=== PATIENT | male | born 1955 | race Caucasian/White ===

== ENCOUNTER → 2016-10-06 | Outpatient (CLI) | payer BC ==
[2016-10-06 09:00] LABS: CH 32.2; CHCM 35.3; HDW 2.97; HGB 13.2 gm/dL (13.0-17.5); MCHC 33.8 g/dL (31.0-37.0); MCV 91.6 fL (80.0-100.0); Mean Platelet Volume 7.1; RBC 4.25 m/uL (4.30-5.90); RDW 14.3 % (11.5-15.5); WBC 5.9 k/uL (3.8-10.6)
[2016-10-06 13:11] LABS: ALT 34 U/L (21-72); AST 20 U/L (17-59); Alkaline Phosphatase 70 U/L (38-126); Anion Gap 13 mmol/L; Blood Urea Nitrogen 25 mg/dL (9-20); Calcium 9.7 mg/dL (8.4-10.2); Carbon Dioxide 27 mmol/L (22-30); Chloride 107 mmol/L (98-107); Cholesterol 197 mg/dL (<200); Glucose 108 mg/dL (74-99); HDL Cholesterol 48 mg/dL (40-60); Non-African American GFR(MDRD) >60 (>60 ml/min/1.73 sqM); Potassium 4.8 mmol/L (3.5-5.1); Sodium 147 mmol/L (137-145); Total Bilirubin 0.7 mg/dL (0.2-1.3); Total Protein 7.2 g/dL (6.3-8.2); Triglycerides 346 mg/dL (<150)
[2016-10-06 13:36] LABS: Prostate Specific Antigen 2.69 ng/mL (0.00-4.00)
== END | disposition home or self-care (01) ==
LOC: LABWHC1 07:34
PROVIDERS: ATTEND Urology
DX: N40.1 Benign prostatic hyperplasia with lower urinary tract symptoms (principal); I11.9 Hypertensive heart disease without heart failure; E78.2 Mixed hyperlipidemia; M19.90 Unspecified osteoarthritis, unspecified site; R97.20 Elevated prostate specific antigen [PSA]
CPT/HCPCS: 36415; 80053; 80061; 84153; 84439; 84443; 85027

== ENCOUNTER → 2016-11-08 | Outpatient (CLI) | payer BC ==
--- NOTE | 2016-11-08 10:02 | XR ---
EXAMINATION TYPE: XR chest 2V DATE OF EXAM: 11/08/2016 9:54 AM COMPARISON: 06/24/2016 TECHNIQUE: PA and lateral views submitted. HISTORY: Right shoulder cyst, hypertension FINDINGS: The lungs are clear and there is no pneumothorax, pleural effusion, or focal pneumonia. Mild hypert rophic change of the spine. IMPRESSION: 1. No acute process.
--- NOTE | 2016-11-08 10:04 | XR ---
EXAMINATION TYPE: XR shoulder complete BILAT DATE OF EXAM: 11/08/2016 9:54 AM COMPARISON: None HISTORY: Shoulder cyst TECHNIQUE: Three views are submitted of each shoulder. FINDINGS: The osseous structures are intact. There is no acute fracture or dislocation. The AC joint is maint ained. Deformity of the left second rib appears chronic. IMPRESSION: 1. No acute process.
[2016-11-08 11:32] LABS: Uric Acid 8.3 mg/dL (3.5-8.5)
== END | disposition home or self-care (01) ==
LOC: RADXRMAIN 09:21
PROVIDERS: ATTEND Internal Medicine
DX: R73.9 Hyperglycemia, unspecified (principal); M19.90 Unspecified osteoarthritis, unspecified site; I11.9 Hypertensive heart disease without heart failure; M10.9 Gout, unspecified; M79.1 Myalgia
CPT/HCPCS: 36415; 71020; 82550; 83036; 84550

== ENCOUNTER → 2017-11-04 | Outpatient (CLI) | payer BC ==
--- NOTE | 2017-11-04 08:37 | XR ---
EXAMINATION TYPE: XR chest 2V DATE OF EXAM: 11/04/2017 COMPARISON: Prior chest x-ray 11/08/2016 HISTORY: I11.9, physical exam TECHNIQUE: Frontal and lateral views of the chest are obtained. FINDINGS: There is no focal air space opacity, pleural effusion, or pneumothorax seen. The cardiac silhouette size is within normal limits. Linear densities on the lateral exam are stable and may refl ect scarring. The osseous structures are intact. IMPRESSION: No acute cardiopulmonary process.
--- NOTE | 2017-11-04 08:38 | XR ---
Abdomen HISTORY: N 20.0 Frontal view of the abdomen on 2 images correlated to prior abdomen 08/05/2016 Probable phlebolith in the right hemipelvis. Oval calcification in the left hemipelvis is no longer s een. Bone mineralization is maintained. Calcification is superimposed over the lower pole of the left kidney measuring approximately 7 mm. Possible calcification also present at the upper pole measuring approximately 4 mm. Right kidney is obscured by bowel gas. Lung bases not included on the exam. No e vident pneumoperitoneum or bowel obstruction. IMPRESSION: Nephrolithiasis. Additional findings above.
[2017-11-04 08:43] LABS: Appearance,Urine Clear (Clear); Bilirubin,Urine Negative (Negative); Blood,Urine Negative (Negative); Color,Urine Yellow; Glucose,Urine (UA) Negative (Negative); HCT 41.7 % (39.0-53.0); HGB 14.7 gm/dL (13.0-17.5); Ketones,Urine Negative (Negative); Leukocyte Esterase,Urine Negative (Negative); MCH 31.7 pg (25.0-35.0); MCHC 35.3 g/dL (31.0-37.0); MCV 89.6 fL (80.0-100.0); Mean Platelet Volume 7.2; PH, Urine 5.5 (5.0-8.0); Platelet Count 204 k/uL (150-450); Protein,Urine Negative (Negative); RBC 4.65 m/uL (4.30-5.90); RDW 13.7 % (11.5-15.5); Urobilinogen,Urine <2.0 mg/dL (<2.0); WBC 5.8 k/uL (3.8-10.6)
[2017-11-04 09:04] LABS: Albumin 4.5 g/dL (3.5-5.0); Calcium 9.6 mg/dL (8.4-10.2); Potassium 4.6 mmol/L (3.5-5.1); Total Bilirubin 0.6 mg/dL (0.2-1.3); Total Protein 7.4 g/dL (6.3-8.2); Uric Acid 7.6 mg/dL (3.5-8.5)
[2017-11-04 09:20] LABS: T4, Free (Free Thyroxine) 0.78 ng/dL (0.78-2.19)
[2017-11-04 23:40] LABS: Hemoglobin A1C 4.8 % (4.0-6.0)
== END | disposition home or self-care (01) ==
LOC: RADXRMAIN 07:47
PROVIDERS: ATTEND Urology
DX: N20.0 Calculus of kidney (principal); N28.89 Other specified disorders of kidney and ureter; E11.9 Type 2 diabetes mellitus without complications; E78.5 Hyperlipidemia, unspecified; K21.0 Gastro-esophageal reflux disease with esophagitis; M10.9 Gout, unspecified; Z00.00 Encounter for general adult medical examination without abnormal findings
CPT/HCPCS: 36415; 71046; 74018; 80053; 80061; 81003; 82272; 83036; 84439; 84443; 84550; 85027

== ENCOUNTER → 2018-07-18 | Outpatient (CLI) | payer BC ==
[2018-07-18 09:14] LABS: HCT 43.3 % (39.0-53.0); MCH 31.7 pg (25.0-35.0); MCHC 34.6 g/dL (31.0-37.0); MCV 91.6 fL (80.0-100.0); Mean Platelet Volume 6.8; Platelet Count 189 k/uL (150-450); RBC 4.72 m/uL (4.30-5.90); RDW 13.5 % (11.5-15.5); WBC 5.6 k/uL (3.8-10.6)
[2018-07-18 19:13] LABS: Albumin 4.8 g/dL (3.80-4.90); Albumin/Globulin Ratio 2.82 (1.20-2.10); Anion Gap 10.6 mmol/L (4.00-12.00); Calcium 9.3 mg/dL (8.7-10.3); Carbon Dioxide 23.4 mmol/L (21.6-31.8); Globulin 1.7 g/dL (2.1-3.7); Total Bilirubin 0.4 mg/dL (0.2-1.2); Total Protein 6.5 g/dL (6.2-8.2)
== END ==
LOC: LABWHC1 07:54
PROVIDERS: ATTEND Internal Medicine
DX: E78.2 Mixed hyperlipidemia (principal); I11.9 Hypertensive heart disease without heart failure
CPT/HCPCS: 36415; 80053; 82550; 85027

== ENCOUNTER → 2018-08-28 | Outpatient (CLI) | payer BC ==
[2018-08-28 08:24] LABS: HCT 43.6 % (39.0-53.0); HGB 15.3 gm/dL (13.0-17.5); MCH 31.5 pg (25.0-35.0); MCHC 35.2 g/dL (31.0-37.0); MCV 89.4 fL (80.0-100.0); Mean Platelet Volume 6.6; Platelet Count 219 k/uL (150-450); RBC 4.88 m/uL (4.30-5.90); RDW 13.4 % (11.5-15.5); WBC 6.1 k/uL (3.8-10.6)
[2018-08-28 16:33] LABS: ALT 28 U/L (10-49); AST 23 U/L (14-35); Albumin/Globulin Ratio 2.63 (1.20-2.10); Alkaline Phosphatase 51 U/L (41-126); Calcium 9.8 mg/dL (8.7-10.3); Carbon Dioxide 27.4 mmol/L (21.6-31.8); Chloride 105 mmol/L (96-109); Cholesterol 245 mg/dL (0-200); Globulin 1.9 g/dL (1.6-3.3); Glucose 104 mg/dL (70-110); Potassium 4.8 mmol/L (3.5-5.5); Sodium 141 mmol/L (135-145); Total Bilirubin 0.6 mg/dL (0.2-1.2); Total Protein 6.9 g/dL (6.2-8.2)
== END | disposition home or self-care (01) ==
LOC: LABWHC1 07:50
PROVIDERS: ATTEND Internal Medicine
DX: Z00.00 Encounter for general adult medical examination without abnormal findings (principal); I11.9 Hypertensive heart disease without heart failure; E78.2 Mixed hyperlipidemia; N40.1 Benign prostatic hyperplasia with lower urinary tract symptoms; M19.90 Unspecified osteoarthritis, unspecified site
CPT/HCPCS: 36415; 80053; 80061; 84153; 84439; 84443; 85027

== ENCOUNTER → 2020-11-21 | Outpatient (CLI) | payer BC ==
--- NOTE | 2020-11-21 15:55 | XR ---
KUB HISTORY: Calculus of kidney, right-sided kidney stone Frontal KUB and [address] scan same date Punctate calcification seen on CT scan within the kidneys not well seen on plain film. Right ureteral calculus seen on CT not seen with certainty on plain film. No evident bowel obstruction or pneumoper itoneum. IMPRESSION: Unable to visualize patient's renal calculi, right ureteral calculus
== END | disposition home or self-care (01) ==
LOC: RADXRMAIN 12:51
PROVIDERS: ATTEND Urology
DX: N20.0 Calculus of kidney (principal)
CPT/HCPCS: 74018

== ENCOUNTER → 2020-11-21 | Outpatient (CLI) | payer BC ==
--- NOTE | 2020-11-21 15:09 | CT ---
EXAMINATION TYPE: CT abdomen pelvis wo con DATE OF EXAM: 11/21/2020 COMPARISON: 07/21/2016 HISTORY: bilateral flank pain, hematuria. hx of stones. CT DLP: 1032 mGycm Examination of the solid and hollow viscera is limited given the lack of contrast. FINDINGS: LUNG BASES: No evidence for nodule. No evidence for infiltrate. LIVER/GB: The gallbladder is unremarkable. No space-occupying hepatic lesion. PANCREAS: No pancreatic mass identified. No inflammatory process seen. SPLEEN: No evidence for splenomegaly. No intrasplenic lesions seen. ADRENALS: No adrenal nodules identified. No evidence for thickening. KIDNEYS: No evidence for renal mass. 2 mm calculus mid pole left kidney. 2 or 3 separate 3 mm calculi lower pole right kidney. No hydronephrosis. BOWEL: Appendix has a normal appearance. No evidence of bowel obstruction. No inflammatory process. Lymph nodes: No evidence for adenopathy greater than 1 cm. Abdominal aorta: Atheromatous changes seen. No evidence for aneurysm. Genital organs: No significant abnormality. Other: No significant abnormality. IMPRESSION: 1. Nonobstructing nephrolithiasis.
== END | disposition home or self-care (01) ==
LOC: RADCTMAIN 14:33
PROVIDERS: ATTEND Urology
DX: N20.0 Calculus of kidney (principal)
CPT/HCPCS: 74176

== ENCOUNTER 2020-12-07 10:40 | Emergency (ER) | payer BC ==
[2020-12-07 10:55] VITALS: TEMP 98.2
--- NOTE | 2020-12-07 11:37 | XR ---
EXAMINATION TYPE: XR chest 2V DATE OF EXAM: 12/07/2020 COMPARISON: 11/04/2017 INDICATION: Weakness hypertension TECHNIQUE: Frontal and lateral views of the chest are obtained. FINDINGS: The heart size is normal. The pulmonary vasculature is normal. The lungs are clear. IMPRESSION: 1. No acute pulmonary process.
--- NOTE | 2020-12-07 12:04 | ED ---
Weakness HPI - General Chief complaint: Weakness Stated complaint: Hypertensive Source: patient Mode of arrival: wheelchair Limitations: no limitations - History of Present Illness Initial comments: Patient is a 65-year-old male past medical history of nephrolithiasis who presents emergency room in with feeling generally weak. Patient states that he was bending over today when he had sudden onset of room spinning. He had to brace himself. States that he went and took his blood pressure was notably elevated. States his blood pressure has been slowly elevating over the past several months. His primary care doctor recently changed his blood pressure medication to increase that however states she does not feel it is adequate enough. He denied having any associated headaches or vision changes. No unilateral numbness or weakness. Denies any chest pain or shortness of breath. No previous history of cardiac issues. No nausea or vomiting. No recent illnesses. Patient denies any abdominal pain. No changes in bowel or bladder habits. No other alleviating, pool servicer modifying factors - Related Data Home Medications Medication Instructions Recorded Confirmed Enalapril [Vasotec] 10 mg PO HS 07/21/16 12/07/20 atenoloL [Tenormin] 50 mg PO DAILY 07/21/16 12/07/20 Atorvastatin Calcium [Lipitor] 80 mg PO HS 12/07/20 12/07/20 Fenofibrate Nanocrystallized 145 mg PO DAILY 12/07/20 12/07/20 [Fenofibrate] Meloxicam [Mobic] 15 mg PO DAILY 12/07/20 12/07/20 Tamsulosin HCl [Flomax] 0.4 mg PO DAILY 12/07/20 12/07/20 Previous Rx's Medication Instructions Recorded Enalapril [Vasotec] 20 mg PO DAILY #30 tablet 12/07/20 Allergies Allergy/AdvReac Type Severity Reaction Status Date / Time No Known Allergies Allergy Verified 12/07/20 13:08 Review of Systems ROS Statement: Those systems with pertinent positive or pertinent negative responses have been documented in the HPI. ROS Other: All systems not noted in ROS Statement are negative. Past Medical History Past Medical History: Hyperlipidemia, Hypertension Additional Past Medical History / Comment(s): kidney stones History of Any Multi-Drug Resistant Organisms: None Reported Past Surgical History: Appendectomy Past Psychological History: No Psychological Hx Reported Smoking Status: Never smoker Past Alcohol Use History: Daily Past Drug Use History: None Reported General Exam Limitations: no limitations Course Vital Signs 12/07/20 12/07/20 12/07/20 10:51 13:58 15:27 Temperature 98.2 F Pulse Rate 60 80 56 L Respiratory 18 18 16 Rate Blood Pressure 196/89 185/90 155/74 O2 Sat by Pulse 99 99 98 Oximetry EKG Findings - EKG Comments: EKG Findings:: EKG demonstrates a sinus bradycardia with a rate of 56. VT interval 146. QRS 94. QTC 438. No acute ST segment elevations or depressions concerning for ischemic changes Medical Decision Making - Medical Decision Making Upon arrival patient was placed into room 20. A thorough history and physical exam was performed. Patient does arrive and is extremely hypertensive. Did recommend laboratory studies as he is symptomatic. Chest x-ray was performed. Laboratory studies are reviewed. Chest x-ray demonstrates no acute cardiopulmonary process. I did discuss the results with the patient. He has had improvement in his blood pressure to 155/74 without medication administration. The patient did take an extra dose of his home blood pressure medication before coming into the ER. I did discuss medication changes. At this time we do feel that it is appropriate to double the patient's dose of enalapril. He is to take atenolol in the morning and enalapril in the afternoon. I want him to keep a blood pressure log. Measures blood pressure 3 times a day. Follow-up with his primary care doctor for which she does have an appointment tomorrow. Return to the emergency room for any new or worsening symptoms. Patient was discharged home in stable condition - Lab Data Result diagrams: 12/07/20 11:17 12/07/20 11:17 Lab Results 12/07/20 12/07/20 12/07/20 Range/Units 11:17 11:17 11:17 WBC 5.9 (3.8-10.6) k/uL RBC 4.67 (4.30-5.90) m/uL Hgb 14.5 (13.0-17.5) gm/dL Hct 40.4 (39.0-53.0) % MCV 86.6 (80.0-100.0) fL MCH 31.0 (25.0-35.0) pg MCHC 35.8 (31.0-37.0) g/dL RDW 13.2 (11.5-15.5) % Plt Count 234 (150-450) k/uL MPV 7.1 Neutrophils % 64 % Lymphocytes % 25 % Monocytes % 6 % Eosinophils % 2 % Basophils % 1 % Neutrophils # 3.7 (1.3-7.7) k/uL Lymphocytes # 1.5 (1.0-4.8) k/uL Monocytes # 0.4 (0-1.0) k/uL Eosinophils # 0.1 (0-0.7) k/uL Basophils # 0.1 (0-0.2) k/uL PT 10.5 (9.0-12.0) sec INR 1.0 (<1.2) APTT 21.9 L (22.0-30.0) sec Sodium 140 (137-145) mmol/L Potassium 4.5 (3.5-5.1) mmol/L Chloride 105 (98-107) mmol/L Carbon Dioxide 24 (22-30) mmol/L Anion Gap 11 mmol/L BUN 30 H (9-20) mg/dL Creatinine 1.21 (0.66-1.25) mg/dL Est GFR (CKD-EPI)AfAm 72 (>60 ml/min/1.73 sqM) Est GFR (CKD-EPI)NonAf 63 (>60 ml/min/1.73 sqM) Glucose 103 H (74-99) mg/dL Calcium 9.7 (8.4-10.2) mg/dL Total Bilirubin 0.7 (0.2-1.3) mg/dL AST 30 (17-59) U/L ALT 28 (4-49) U/L Alkaline Phosphatase 63 (38-126) U/L Troponin I (0.000-0.034) ng/mL Total Protein 7.2 (6.3-8.2) g/dL Albumin 4.8 (3.5-5.0) g/dL Urine Color Urine Appearance (Clear) Urine pH (5.0-8.0) Ur Specific [place] (1.001-1.035) Urine Protein (Negative) Urine Glucose (UA) (Negative) Urine Ketones (Negative) Urine Blood (Negative) Urine Nitrite (Negative) Urine Bilirubin (Negative) Urine Urobilinogen (<2.0) mg/dL Ur Leukocyte Esterase (Negative) 12/07/20 12/07/20 Range/Units 11:17 12:16 WBC (3.8-10.6) k/uL RBC (4.30-5.90) m/uL Hgb (13.0-17.5) gm/dL Hct (39.0-53.0) % MCV (80.0-100.0) fL MCH (25.0-35.0) pg MCHC (31.0-37.0) g/dL RDW (11.5-15.5) % Plt Count (150-450) k/uL MPV Neutrophils % % Lymphocytes % % Monocytes % % Eosinophils % % Basophils % % Neutrophils # (1.3-7.7) k/uL Lymphocytes # (1.0-4.8) k/uL Monocytes # (0-1.0) k/uL Eosinophils # (0-0.7) k/uL Basophils # (0-0.2) k/uL PT (9.0-12.0) sec INR (<1.2) APTT (22.0-30.0) sec Sodium (137-145) mmol/L Potassium (3.5-5.1) mmol/L Chloride (98-107) mmol/L Carbon Dioxide (22-30) mmol/L Anion Gap mmol/L BUN (9-20) mg/dL Creatinine (0.66-1.25) mg/dL Est GFR (CKD-EPI)AfAm (>60 ml/min/1.73 sqM) Est GFR (CKD-EPI)NonAf (>60 ml/min/1.73 sqM) Glucose (74-99) mg/dL Calcium (8.4-10.2) mg/dL Total Bilirubin (0.2-1.3) mg/dL AST (17-59) U/L ALT (4-49) U/L Alkaline Phosphatase (38-126) U/L Troponin I <0.012 (0.000-0.034) ng/mL Total Protein (6.3-8.2) g/dL Albumin (3.5-5.0) g/dL Urine Color Yellow Urine Appearance Clear (Clear) Urine pH 5.5 (5.0-8.0) Ur Specific [place] 1.021 (1.001-1.035) Urine Protein Negative (Negative) Urine Glucose (UA) Negative (Negative) Urine Ketones Negative (Negative) Urine Blood Negative (Negative) Urine Nitrite Negative (Negative) Urine Bilirubin Negative (Negative) Urine Urobilinogen <2.0 (<2.0) mg/dL Ur Leukocyte Esterase Negative (Negative) Disposition Clinical Impression: HTN (hypertension) Disposition: HOME SELF-CARE Condition: Stable Instructions (If sedation given, give patient instructions): Hypertension (ED) Additional Instructions: Please follow up with your PCP at your scheduled appointment. Take your normal dose of Atenolol in the morning and Enalapril 20 mg in the afternoon. Take your blood pressures 3 times daily and keep a log. Return to the ED for any new or worsening symptoms. Prescriptions: Enalapril [Vasotec] 20 mg PO DAILY #30 tablet Is patient prescribed a controlled substance at d/c from ED?: No Referrals: Mann Merlos MD [Primary Care Provider] - 1-2 days Time of Disposition: 14:46
[2020-12-07 12:08] LABS: Basophils # (A) 0.1 k/uL (0-0.2); Basophils % (A) 1 %; Eosinophils # (A) 0.1 k/uL (0-0.7); Eosinophils % (A) 2 %; HCT 40.4 % (39.0-53.0); HGB 14.5 gm/dL (13.0-17.5); Lymphocytes # (A) 1.5 k/uL (1.0-4.8); Lymphocytes % (A) 25 %; MCHC 35.8 g/dL (31.0-37.0); MCV 86.6 fL (80.0-100.0); Mean Platelet Volume 7.1; Monocytes # (A) 0.4 k/uL (0-1.0); Monocytes % (A) 6 %; Neutrophils # (A) 3.7 k/uL (1.3-7.7); Neutrophils % (A) 64 %; Platelet Count 234 k/uL (150-450); RBC 4.67 m/uL (4.30-5.90); RDW 13.2 % (11.5-15.5); WBC 5.9 k/uL (3.8-10.6)
[2020-12-07 12:24] LABS: Prothrombin Time 10.5 sec (9.0-12.0)
[2020-12-07 12:26] LABS: Partial Thromboplastin Time 21.9 sec (22.0-30.0)
[2020-12-07 12:28] LABS: Albumin 4.8 g/dL (3.5-5.0); Calcium 9.7 mg/dL (8.4-10.2); Potassium 4.5 mmol/L (3.5-5.1); Total Bilirubin 0.7 mg/dL (0.2-1.3); Total Protein 7.2 g/dL (6.3-8.2)
[2020-12-07 12:32] LABS: Appearance,Urine Clear (Clear); Bilirubin,Urine Negative (Negative); Blood,Urine Negative (Negative); Color,Urine Yellow; Glucose,Urine (UA) Negative (Negative); Ketones,Urine Negative (Negative); Leukocyte Esterase,Urine Negative (Negative); Nitrite,Urine Negative (Negative); PH, Urine 5.5 (5.0-8.0); Protein,Urine Negative (Negative); Specific Gravity,Urine 1.021 (1.001-1.035); Urobilinogen,Urine <2.0 mg/dL (<2.0)
[2020-12-07 15:29] VITALS: BP 155/74; PULSE 56; RESP 16
== END 2020-12-07 15:29 | disposition home or self-care (01) ==
LOC: EC 10:40
DX: I10 Essential (primary) hypertension (principal); E78.5 Hyperlipidemia, unspecified; Z87.442 Personal history of urinary calculi; Z90.49 Acquired absence of other specified parts of digestive tract
CPT/HCPCS: 36415; 71046; 80053; 81003; 84484; 85025; 85610; 85730; 93005; 99285

== ENCOUNTER → 2021-03-25 | Outpatient (CLI) | payer BC ==
--- NOTE | 2021-03-25 12:19 | CT ---
EXAMINATION TYPE: CT abdomen pelvis wo con DATE OF EXAM: 03/25/2021 COMPARISON: 11/21/2020 HISTORY: bilateral flank pain, hematuria CT DLP: 878 mGycm Examination of the solid and hollow viscera is limited given the lack of contrast. FINDINGS: LUNG BASES: No evidence for nodule. No evidence for infiltrate. LIVER/GB: The gallbladder is unremarkable. No space-occupying hepatic lesion. PANCREAS: No pancreatic mass identified. No inflammatory process seen. SPLEEN: No evidence for splenomegaly. No intrasplenic lesions seen. ADRENALS: No adrenal nodules identified. No evidence for thickening. KIDNEYS: There is an approximate 7.5 mm x 4.2 mm calculus at the right UVJ resulting in mild right-si ded hydronephrosis. 5 mm calculus lower pole right kidney as well as an adjacent 2 mm calculus. 2 mm nonobstructing calculus mid to upper pole left kidney. BOWEL: Appendix has a normal appearance. No evidence of bowel obstruction. No inflammatory process. Lymph nodes: No evidence for adenopathy greater than 1 cm. Abdominal aorta: Atheromatous changes seen. No evidence for aneurysm. Genital organs: Moderate prostate gland enlargement Other: No significant abnormality. IMPRESSION: There is an approximate 7.5 mm x 4.2 mm calculus at the right UVJ resulting in mild right-sided hydro nephrosis.
== END | disposition home or self-care (01) ==
LOC: RADCTMAIN 11:46
PROVIDERS: ATTEND Urology
DX: N13.2 Hydronephrosis with renal and ureteral calculous obstruction (principal)
CPT/HCPCS: 74176

== ENCOUNTER → 2021-03-27 | Outpatient (CLI) | payer BC ==
--- NOTE | 2021-03-27 13:45 | ECHOS ---
STRESS ECHOCARDIOGRAM DATE OF SERVICE: March 27, 2021 PERFORMING PHYSICIAN: Jayro Galindo M.D. INDICATIONS: Hypertensive crisis. BASELINE HEART RATE: 65 BASELINE BLOOD PRESSURE: 162/76 MAXIMUM HEART RATE: 146 MAXIMUM BLOOD PRESSURE: 220/91 85% MPHR: 132 100% MPHR: 155 METS: 10.1 MAXIMUM STAGE REACHED: IV TOTAL EXERCISE TIME: 10:12 STRESS DATA: Pretesting physical examination showed a heart rate of 65, pressure is 162/76 mmHg. Baseline EKG showed sinus mechanism. The patient exercised on the treadmill according to [employer] protocol for a total of 10 minutes and 12 seconds and achieved 10.1 METS. The max heart rate was 146, which is about 94% of maximum predicted heart rate with maximum blood pressure of 234/57 mmHg. Clinically the patient did not have any symptoms and the EKG did not show any ST changes concerning for ischemia. ECHOCARDIOGRAM IMAGES: On echocardiogram images from parasternal long axis view, parasternal short axis view, apical 4 chamber and apical 2 chambers were obtained as the baseline images, at the peak of the heart rate as well as on recovery. The echocardiogram images showed good augmentation in the left ventricular systolic function without any significant wall motion abnormalities concerning for ischemia. CONCLUSION: 1. Excellent exercise tolerance. 2. Normal EKG in response to exercise. 3. Normal echocardiogram in response to exercise. MMODL / IJN: [id number] /
== END | disposition home or self-care (01) ==
LOC: RADNMMAIN 10:38
PROVIDERS: ATTEND Family Medicine
DX: I16.9 Hypertensive crisis, unspecified (principal)
CPT/HCPCS: 93351

== ENCOUNTER → 2022-11-25 | Outpatient (CLI) | payer BC ==
--- NOTE | 2022-11-26 07:27 | US ---
EXAMINATION TYPE: US kidneys/renal and bladder DATE OF EXAM: 11/25/2022 COMPARISON: 03/19 CT CLINICAL HISTORY: N18.9 CKD. history of recurring stones EXAM MEASUREMENTS: Right Kidney: 11.2 x 5.8 x 5.8 cm Left Kidney: 12.5 x 6.2 x 5.1 cm Right Kidney: small cortical cyst at lateral mid pole, several scattered shadowing stones, largest at the lower pole measuring 1.7cm Left Kidney: tiny scattered echogenic foci may represent small stones Bladder: somewhat thickened bladder wall Bilateral Jets seen: yes There is no evidence for hydronephrosis at this point in time. No The urinary bladder is anechoic. Bilateral ureteral jets are seen. IMPRESSION: 1. Nonobstructing calculi bilateral kidneys difficult to exclude. Largest calculus lower pole right k idney measuring 1.7 cm.
== END | disposition home or self-care (01) ==
LOC: RADUSWWP 16:03
PROVIDERS: ATTEND Urology
DX: N20.0 Calculus of kidney (principal); N18.9 Chronic kidney disease, unspecified
CPT/HCPCS: 76770

== ENCOUNTER → 2022-12-10 | Outpatient (CLI) | payer BC ==
[2022-12-10 13:26] LABS: Creatinine,Urine Random 147.7 mg/dL; Protein/Creatinine Ratio,Urine 1.198
[2022-12-10 15:15] LABS: Basophils # (A) 0.05 X 10*3/uL (0.00-0.10); Basophils % (A) 0.8 %; Eosinophils % (A) 1.7 %; HCT 43.1 % (39.6-50.0); HGB 14.1 g/dL (13.0-17.0); Immature Grans, Automated 0.5 %; Lymphocytes # (A) 1.31 X 10*3/uL (0.90-5.00); Lymphocytes % (A) 22.2 %; MCH 30.1 pg (27.0-32.0); MCHC 32.7 g/dL (32.0-37.0); MCV 91.9 fL (80.0-97.0); Mean Platelet Volume 9.5 fL (9.5-12.2); Monocytes # (A) 0.49 X 10*3/uL (0.20-1.00); Monocytes % (A) 8.3 %; NRBC Per 100 WBC 0 /100 WBCS (0.0-0.0); Neutrophils # (A) 3.93 X 10*3/uL (1.80-7.70); Neutrophils % (A) 66.5 %; Platelet Count 206 X 10*3/uL (140-440); RBC 4.69 X 10*6/uL (4.40-5.60); RDW 13.8 % (11.5-14.5); WBC 5.91 X 10*3/uL (4.50-10.00)
[2022-12-10 15:59] LABS: Albumin 4.7 g/dL (3.8-4.9); Albumin/Globulin Ratio 2.14 (1.60-3.17); Anion Gap 12.5 mmol/L (10.00-18.00); BUN/Creat Ratio 19.63 Ratio (12.00-20.00); Blood Urea Nitrogen 26.7 mg/dL (9.0-27.0); Calcium 9.8 mg/dL (8.7-10.3); Carbon Dioxide 23.8 mmol/L (20.0-27.5); Globulin 2.2 g/dL (1.6-3.3); Magnesium 2.1 mg/dL (1.5-2.4); Non-African American GFR(CKD) 53.5 (60.0-200.0); Phosphorus 3.3 mg/dL (2.4-5.1); Potassium 4.6 mmol/L (3.5-5.5); Total Bilirubin 0.4 mg/dL (0.30-1.20); Total Protein 6.8 g/dL (6.2-8.2)
[2022-12-10 22:03] LABS: Appearance,Urine Turbid (Clear); Bacteria,Urine Trace /HPF (None Seen); Bilirubin,Urine Small (Negative); Blood,Urine Large (Negative); Color,Urine Red (Yellow); Ketones,Urine Negative (Negative); Nitrite,Urine Positive (Negative); Specific Gravity,Urine 1.024 (1.001-1.030); Uric Acid Crystals,Urine Present /LPF (None Seen); Urobilinogen,Urine 0.2 (0.2,1.0)
== END | disposition home or self-care (01) ==
LOC: LABWHC1 08:17
PROVIDERS: ATTEND Nurse Practitioner Acute Care
DX: N18.31 Chronic kidney disease, stage 3a (principal)
CPT/HCPCS: 36415; 80053; 81001; 82043; 82570; 83036; 83735; 84100; 84156; 85025

== ENCOUNTER → 2023-03-14 | Outpatient (CLI) | payer BC ==
[2023-03-14 11:00] LABS: Creatinine,Urine Random 83.3 mg/dL
[2023-03-14 16:02] LABS: Basophils # (A) 0.05 X 10*3/uL (0.00-0.10); Basophils % (A) 1.2 %; Eosinophils # (A) 0.06 X 10*3/uL (0.04-0.35); Eosinophils % (A) 1.4 %; HCT 45.7 % (39.6-50.0); HGB 14.8 d/dL (12.0-15.0); Lymphocytes # (A) 1.01 X 10*3/uL (0.90-5.00); Lymphocytes % (A) 23.4 %; MCH 29.8 pg (27.0-32.0); MCHC 32.4 d/dL (32.0-37.0); Mean Platelet Volume 9.8 FL (9.5-12.2); Monocytes # (A) 0.45 X 10*3/uL (0.20-1.00); Monocytes % (A) 10.4 %; NRBC Per 100 WBC 0 X 10*3/uL (0.00-0.01); Neutrophils # (A) 2.74 X 10*3/uL (1.80-7.70); Neutrophils % (A) 63.4 %; Platelet Count 234 X 10*3/uL (140-440); RBC 4.97 X 10*6/uL (4.40-5.60); RDW 13.7 % (11.5-14.5); WBC 4.32 X 10*3/uL (4.50-10.00)
[2023-03-14 16:19] LABS: BUN/Creat Ratio 20.43 Ratio (12.00-20.00); Blood Urea Nitrogen 28.6 mg/dL (9.0-27.0); Calcium 9.5 mg/dL (8.7-10.3); Carbon Dioxide 25.5 mmol/L (21.6-31.8); Chloride 105 mmol/L (96-109); Glucose 126 mg/dL (70-110); Magnesium 2.1 mg/dL (1.5-2.4); Phosphorus 2.7 mg/dL (2.4-5.1); Potassium 5.6 mmol/L (3.5-5.5); Sodium 141 mmol/L (135-145)
[2023-03-14 16:26] LABS: Appearance,Urine Clear (Clear); Bilirubin,Urine Negative (Negative); Blood,Urine Negative (Negative); Color,Urine Yellow (Yellow); Ketones,Urine Negative (Negative); Nitrite,Urine Negative (Negative); PH, Urine 5.5; Specific Gravity,Urine 1.015 (1.001-1.030); Urobilinogen,Urine 0.2 E.U./DL
[2023-03-14 18:37] LABS: Microalbumin Creatinine Ratio <14 mg/g Cr (0-30); Urine Creatinine 86.2 mg/dL (39.0-259.0)
== END | disposition home or self-care (01) ==
LOC: LABWHC1 09:40
PROVIDERS: ATTEND Nurse Practitioner Acute Care
DX: N39.0 Urinary tract infection, site not specified (principal); N18.31 Chronic kidney disease, stage 3a; D63.1 Anemia in chronic kidney disease; R80.9 Proteinuria, unspecified
CPT/HCPCS: 36415; 80048; 81003; 82043; 82570; 83735; 84100; 84156; 85025

== ENCOUNTER → 2023-08-04 | Outpatient (CLI) | payer BC ==
[2023-08-04 15:44] LABS: Basophils # (A) 0.05 X 10*3/uL (0.00-0.10); Eosinophils # (A) 0.14 X 10*3/uL (0.04-0.35); Eosinophils % (A) 2.9 %; HGB 14.9 g/dL (13.0-17.0); Lymphocytes # (A) 1.13 X 10*3/uL (0.90-5.00); Lymphocytes % (A) 23.7 %; MCH 29.7 pg (27.0-32.0); MCHC 32.4 g/dL (32.0-37.0); MCV 91.8 FL (80.0-97.0); Mean Platelet Volume 10.3 FL (9.5-12.2); Monocytes # (A) 0.56 X 10*3/uL (0.20-1.00); Monocytes % (A) 11.7 %; NRBC Per 100 WBC 0 X 10*3/uL (0.00-0.01); Neutrophils # (A) 2.88 X 10*3/uL (1.80-7.70); Neutrophils % (A) 60.5 %; Platelet Count 200 X 10*3/uL (140-440); RBC 5.01 X 10*6/uL (4.40-5.60); RDW 14.3 % (11.5-14.5); WBC 4.77 X 10*3/uL (4.50-10.00)
[2023-08-04 16:20] LABS: BUN/Creat Ratio 17.58 Ratio (12.00-20.00); Blood Urea Nitrogen 21.1 mg/dL (9.0-27.0); Chloride 106 mmol/L (96-109); Chol/HDL Ratio 3.42 Ratio; Glucose 125 mg/dL (70-110); Potassium 5.4 mmol/L (3.5-5.5); Sodium 143 mmol/L (135-145)
[2023-08-04 16:21] LABS: ALT 25 U/L (10-49); AST 17 U/L (14-35); Albumin 4.5 g/dL (3.8-4.9); Albumin/Globulin Ratio 2.05 Ratio (1.60-3.17); Alkaline Phosphatase 62 U/L (41-126); Calcium 9.7 mg/dL (8.7-10.3); Carbon Dioxide 26.8 mmol/L (21.6-31.8); Globulin 2.2 g/dL (1.6-3.3); Prostate Specific Antigen 3.21 ng/mL (0.000-4.500); T4, Free (Free Thyroxine) 1.16 ng/dL (0.80-1.80); Total Bilirubin 0.4 mg/dL (0.3-1.2); Total Protein 6.7 g/dL (6.2-8.2)
== END | disposition home or self-care (01) ==
LOC: LABWHC1 07:30
PROVIDERS: ATTEND Family Medicine
DX: Z00.00 Encounter for general adult medical examination without abnormal findings (principal); Z12.5 Encounter for screening for malignant neoplasm of prostate
CPT/HCPCS: 36415; 80053; 80061; 84153; 84439; 84443; 85025

== ENCOUNTER → 2023-09-24 | Outpatient (CLI) | payer BC ==
[2023-09-24 09:57] LABS: Creatinine,Urine Random 103.3 mg/dL
[2023-09-24 13:12] LABS: HCT 44.4 % (39.6-50.0); HGB 14.5 g/dL (13.0-17.0); MCH 29.3 pg (27.0-32.0); MCHC 32.7 g/dL (32.0-37.0); MCV 89.7 FL (80.0-97.0); Mean Platelet Volume 10.3 FL (9.5-12.2); NRBC Per 100 WBC 0 X 10*3/uL (0.00-0.01); Platelet Count 224 X 10*3/uL (140-440); RBC 4.95 X 10*6/uL (4.40-5.60); RDW 13.8 % (11.5-14.5); WBC 5.09 X 10*3/uL (4.50-10.00)
[2023-09-24 13:23] LABS: Blood Urea Nitrogen 31.2 mg/dL (9.0-27.0); Glucose 113 mg/dL (70-110); Magnesium 2.2 mg/dL (1.5-2.4)
[2023-09-24 13:24] LABS: ALT 19 U/L (10-49); AST 16 U/L (14-35); Albumin 4.7 g/dL (3.8-4.9); Albumin/Globulin Ratio 2.14 Ratio (1.60-3.17); Alkaline Phosphatase 74 U/L (41-126); Calcium 9.9 mg/dL (8.7-10.3); Carbon Dioxide 25.2 mmol/L (21.6-31.8); Chloride 105 mmol/L (96-109); Globulin 2.2 g/dL (1.6-3.3); Phosphorus 3.4 mg/dL (2.4-5.1); Sodium 141 mmol/L (135-145); Total Bilirubin 0.4 mg/dL (0.3-1.2); Total Protein 6.9 g/dL (6.2-8.2)
[2023-09-24 14:36] LABS: Appearance,Urine Cloudy (Clear); Bilirubin,Urine Negative (Negative); Blood,Urine Negative (Negative); Color,Urine Yellow (Yellow); Ketones,Urine Negative (Negative); Nitrite,Urine Negative (Negative); Specific Gravity,Urine 1.026 (1.001-1.030); Urobilinogen,Urine 0.2 E.U./DL
[2023-09-24 14:54] LABS: Bacteria,Urine None Seen (None Seen)
[2023-09-24 14:55] LABS: Uric Acid Crystals,Urine Present
== END | disposition home or self-care (01) ==
LOC: LABWHC1 09:00
PROVIDERS: ATTEND Internal Medicine Nephrology
DX: N39.0 Urinary tract infection, site not specified (principal); N18.31 Chronic kidney disease, stage 3a; D63.1 Anemia in chronic kidney disease; R80.9 Proteinuria, unspecified
CPT/HCPCS: 36415; 80053; 81001; 82043; 82570; 83036; 83735; 84100; 84156; 85027

== ENCOUNTER → 2023-11-30 | Outpatient (CLI) | payer BC ==
[2023-11-30 11:17] LABS: Appearance,Urine Clear (Clear); Bilirubin,Urine Negative (Negative); Blood,Urine Negative (Negative); Color,Urine Yellow (Yellow); HCT 48.5 % (39.6-50.0); HGB 16.2 g/dL (13.0-17.0); Ketones,Urine Negative (Negative); MCH 30.3 pg (27.0-32.0); MCHC 33.4 g/dL (32.0-37.0); MCV 90.7 FL (80.0-97.0); Mean Platelet Volume 10.2 FL (9.5-12.2); NRBC Per 100 WBC 0 X 10*3/uL (0.00-0.01); Nitrite,Urine Negative (Negative); PH, Urine 5.5; Platelet Count 202 X 10*3/uL (140-440); RBC 5.35 X 10*6/uL (4.40-5.60); Specific Gravity,Urine 1.019 (1.001-1.030); Urobilinogen,Urine 0.2 E.U./DL; WBC 4.97 X 10*3/uL (4.50-10.00)
[2023-11-30 11:29] LABS: ALT 30 U/L (10-49); AST 25 U/L (14-35); Albumin 4.9 g/dL (3.8-4.9); Albumin/Globulin Ratio 2.23 Ratio (1.60-3.17); Alkaline Phosphatase 62 U/L (41-126); BUN/Creat Ratio 19.58 Ratio (12.00-20.00); Blood Urea Nitrogen 23.5 mg/dL (9.0-27.0); Calcium 10.1 mg/dL (8.7-10.3); Carbon Dioxide 28.7 mmol/L (21.6-31.8); Chloride 104 mmol/L (96-109); Globulin 2.2 g/dL (1.6-3.3); Glucose 112 mg/dL (70-110); Magnesium 2.3 mg/dL (1.5-2.4); Phosphorus 3.5 mg/dL (2.4-5.1); Potassium 4.7 mmol/L (3.5-5.5); Sodium 143 mmol/L (135-145); Total Bilirubin 0.6 mg/dL (0.3-1.2); Total Protein 7.1 g/dL (6.2-8.2)
== END | disposition home or self-care (01) ==
LOC: LABWHC1 08:29
PROVIDERS: ATTEND Nurse Practitioner Acute Care
DX: N18.31 Chronic kidney disease, stage 3a (principal); D63.1 Anemia in chronic kidney disease; N39.0 Urinary tract infection, site not specified
CPT/HCPCS: 36415; 80053; 81003; 83735; 84100; 85027

== ENCOUNTER → 2024-09-04 | Outpatient (CLI) | payer BC ==
[2024-09-04 09:06] LABS: Appearance,Urine Clear (Clear); Bilirubin,Urine Negative (Negative); Blood,Urine Negative (Negative); Color,Urine Light Yellow; Glucose,Urine (UA) 4+ (Negative); Ketones,Urine Negative (Negative); Leukocyte Esterase,Urine Negative (Negative); Nitrite,Urine Negative (Negative); PH, Urine 5.5 (5.0-8.0); Protein,Urine Negative (Negative); Specific Gravity,Urine 1.026 (1.001-1.035); Urobilinogen,Urine <2.0 mg/dL (<2.0)
[2024-09-04 11:53] LABS: Creatinine,Urine Random 131.7 mg/dL
[2024-09-04 15:43] LABS: Basophils # (A) 0.05 X 10*3/uL (0.00-0.10); Basophils % (A) 0.9 %; Eosinophils # (A) 0.07 X 10*3/uL (0.04-0.35); Eosinophils % (A) 1.3 %; HCT 51.4 % (39.6-50.0); HGB 16.7 g/dL (13.0-17.0); Lymphocytes # (A) 1.39 X 10*3/uL (0.90-5.00); MCH 30.1 pg (27.0-32.0); MCHC 32.5 g/dL (32.0-37.0); MCV 92.8 FL (80.0-97.0); Mean Platelet Volume 10.2 FL (9.5-12.2); Monocytes # (A) 0.49 X 10*3/uL (0.20-1.00); Monocytes % (A) 8.8 %; NRBC Per 100 WBC 0 X 10*3/uL (0.00-0.01); Neutrophils # (A) 3.52 X 10*3/uL (1.80-7.70); Neutrophils % (A) 63.5 %; Platelet Count 188 X 10*3/uL (140-440); RBC 5.54 X 10*6/uL (4.40-5.60); RDW 13.7 % (11.5-14.5); WBC 5.55 X 10*3/uL (4.50-10.00)
[2024-09-04 16:43] LABS: ALT 27 U/L (10-49); AST 21 U/L (14-35); Albumin 4.8 g/dL (3.8-4.9); Alkaline Phosphatase 63 U/L (41-126); BUN/Creat Ratio 19.69 Ratio (12.00-20.00); Blood Urea Nitrogen 25.6 mg/dL (9.0-27.0); Carbon Dioxide 26.2 mmol/L (21.6-31.8); Chloride 105 mmol/L (96-109); Chol/HDL Ratio 3.44 Ratio; Globulin 2.4 g/dL (1.6-3.3); Glucose 119 mg/dL (70-110); LDL Cholesterol,Calculated 79.7 mg/dL (0.0-131.0); Magnesium 2.2 mg/dL (1.5-2.4); Phosphorus 3.3 mg/dL (2.4-5.1); Prostate Specific Antigen 4.86 ng/mL (0.000-4.500); Sodium 143 mmol/L (135-145); T4, Free (Free Thyroxine) 1.12 ng/dL (0.80-1.80); Total Bilirubin 0.7 mg/dL (0.3-1.2); Total Protein 7.2 g/dL (6.2-8.2)
[2024-09-04 21:11] LABS: Microalbumin Creatinine Ratio <8 mg/g Cr (0-30)
== END | disposition home or self-care (01) ==
LOC: LABWHC1 08:12
PROVIDERS: ATTEND Internal Medicine Nephrology
DX: E78.5 Hyperlipidemia, unspecified (principal); E78.1 Pure hyperglyceridemia; D64.9 Anemia, unspecified; N39.0 Urinary tract infection, site not specified; N18.31 Chronic kidney disease, stage 3a; R80.9 Proteinuria, unspecified
CPT/HCPCS: 36415; 80053; 80061; 81003; 82043; 82570; 83735; 84100; 84153; 84156; 84439; 84443; 85025

== ENCOUNTER → 2024-11-28 | Outpatient (CLI) | payer BC ==
[2024-11-28 10:42] LABS: HCT 48.9 % (39.6-50.0); HGB 16.3 g/dL (13.0-17.0); MCH 30.6 pg (27.0-32.0); MCHC 33.3 g/dL (32.0-37.0); MCV 91.9 FL (80.0-97.0); Mean Platelet Volume 9.2 FL (9.5-12.2); NRBC Per 100 WBC 0 X 10*3/uL (0.00-0.01); Platelet Count 181 X 10*3/uL (140-440); RBC 5.32 X 10*6/uL (4.40-5.60); RDW 13.7 % (11.5-14.5); WBC 4.85 X 10*3/uL (4.50-10.00)
[2024-11-28 10:53] LABS: ALT 24 U/L (10-49); AST 24 U/L (14-35); Albumin 4.5 g/dL (3.8-4.9); Albumin/Globulin Ratio 2.05 Ratio (1.60-3.17); Alkaline Phosphatase 62 U/L (41-126); Blood Urea Nitrogen 25.3 mg/dL (9.0-27.0); Calcium 9.8 mg/dL (8.7-10.3); Carbon Dioxide 26.1 mmol/L (21.6-31.8); Chloride 103 mmol/L (96-109); Globulin 2.2 g/dL (1.6-3.3); Glucose 129 mg/dL (70-110); Magnesium 2.2 mg/dL (1.5-2.4); Phosphorus 3.3 mg/dL (2.4-5.1); Potassium 4.9 mmol/L (3.5-5.5); Sodium 141 mmol/L (135-145); Total Bilirubin 0.6 mg/dL (0.3-1.2); Total Protein 6.7 g/dL (6.2-8.2)
[2024-11-28 19:17] LABS: Microalbumin Creatinine Ratio <13 mg/g Cr (0-30); Urine Creatinine 89.1 mg/dL (39.0-259.0)
== END | disposition home or self-care (01) ==
LOC: LABWHC1 08:18
PROVIDERS: ATTEND Internal Medicine Nephrology
DX: N18.31 Chronic kidney disease, stage 3a (principal)
CPT/HCPCS: 36415; 80053; 82043; 82570; 83735; 84100; 85027